=== PATIENT | female | born 1995 | race Caucasian/White ===

== ENCOUNTER 2021-02-16 10:01 | Emergency (ER) | payer MEDICAID ==
[~2021-02-16] VITALS: Ht 170.2 cm; Wt 71.4 kg
[2021-02-16 10:14] VITALS: TEMP 97.2
[2021-02-16 11:50] VITALS: BP 133/72; PULSE 86
== END 2021-02-16 11:50 | disposition home or self-care (01) ==
LOC: COL.ER 10:01
DX: M25.572 Pain in left ankle and joints of left foot (principal); F17.290 Nicotine dependence, other tobacco product, uncomplicated; X58.XXXA Exposure to other specified factors, initial encounter; Y93.B9 Activity, other involving muscle strengthening exercises

== ENCOUNTER 2021-03-10 09:30 | Day surgery (SDC) | payer MEDICAID ==
[~2021-03-10] VITALS: Ht 167.6 cm; Wt 71.5 kg
[2021-03-10] MEDS ORDERED: PEPCID 20MG TAB20 MG PO (10:12)
[2021-03-10] MEDS ORDERED: MILI 0.25-0.031 EACH PO (10:13)
[2021-03-10] MEDS ORDERED: ZOFRAN ODT4 MG PO (10:13)
[2021-03-10 10:23] VITALS: BP 111/75; PULSE 65; TEMP 98.1
[2021-03-10 11:21] VITALS: TEMP 97
[2021-03-10 11:30] VITALS: BP 106/66; PULSE 70
--- NOTE | 2021-03-10 11:30 | NUR ---
Patient arrived back to [facility] via cart. Transfered with slow, steady gait to chair. Postop vital signs started. BP is low, but consistant with preop vital signs. Patient request sprit and toast. Will continue to monitor.
[2021-03-10 11:45] VITALS: BP 104/60; PULSE 63
--- NOTE | 2021-03-10 11:45 | NUR ---
Patient sitting up in chair, denies discomfort. Tolerating food and drink well. Vital signs remain stable. Will continue to monitor.
[2021-03-10 12:00] VITALS: BP 105/65; PULSE 60
--- NOTE | 2021-03-10 12:00 | NUR ---
Physician in to see patient. Patient sitting up in chair, denies discomfort. Vital signs stable. D/C IV with no complications. Instructed patient to dress and call out for tranportation.
--- NOTE | 2021-03-10 12:13 | NUR ---
Boyfriend and child brought in from waiting room. Transfered patient via wheelchair to personal vehicle accompanied by boyfriend nd child.
== END 2021-03-10 12:13 ==
LOC: SDCO 09:30
DX: K29.50 Unspecified chronic gastritis without bleeding (principal); K21.9 Gastro-esophageal reflux disease without esophagitis; R19.7 Diarrhea, unspecified; R19.4 Change in bowel habit; Z87.891 Personal history of nicotine dependence; Z20.822 Contact with and (suspected) exposure to COVID-19; Z79.899 Other long term (current) drug therapy
CPT/HCPCS: J2704; J3010; J7030

== ENCOUNTER → 2021-04-14 | Outpatient (CLI) | payer MEDICAID ==
[~2021-04-14] MED LIST: MILI 0.25-0.031 EACH PO; PEPCID 20MG TAB20 MG PO; ZOFRAN ODT4 MG PO
== END ==
LOC: COL.RAD 09:57
DX: R11.2 Nausea with vomiting, unspecified (principal)
CPT/HCPCS: A9537